=== PATIENT | female | born 1980 | race Hispanic/Latino ===

== ENCOUNTER 2016-03-12 17:16 | Emergency (ER) | payer OTHER ==
[~2016-03-12] VITALS: Ht 157.5 cm; Wt 79.5 kg
[~2016-03-12 17:16] MED LIST: PREN1TAB69 PO
[2016-03-12 17:29] VITALS: BP 120/75; PULSE 94; RESP 18; O2SAT 96
--- NOTE | 2016-03-12 18:48 | ED.REPORT ---
HPI-URI / Cough / Cold Date of Service Mar 12, 2016 ED Provider: Doc,Ed MD History of Present Illness: Mom sick since 03/04/2016, doing emergeneC, body aches on 03/09, fatigue, non stop coughing, green d/c, pressure in head. primary care freyafili nuñez. will need a note for work. Nursing Notes Stated Complaint: COUGH, DIZZY THROAT, MUCUS Chief Complaint: FLU/Cold Symptoms Nursing Notes Reviewed: Yes Allergies: Coded Allergies: sulfamethoxazole (Verified Allergy, Unknown, 08/24/10) trimethoprim (Verified Allergy, Unknown, 08/24/10) Scheduled Vit/Fe Fumarate/Fa-Expunged Drug, Do (-Expunged Drug, Do Not Renew!) 1 Each Tablet 1 EACH PO DAILY General Time Seen by MD: 18:47 Chief Complaint Cough, productive... 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 [employer] Ambulatory Status Independent Review of Systems Basic Review of Systems Cardiovascular: No chest pain, No dyspnea on exertion, No orthopnea, No parox noct dyspnea, No palpitations : No dysuria, No frequency Musculoskeletal: No extremity swelling, No extremity pain, Full range of motion , Joints NL Hematologic: No bleeding, No bruising Endocrine: No cold intolerance, No heat intolerance, No weight gain, No weight loss Psychiatric: Normal thought content Physical Exam Initial Vital Signs Vital Signs (First) Date Time Temp Pulse Resp B/P Pulse Ox O2 Delivery O2 Flow Rate FiO2 03/12/16 17:29 38.0 94 18 120/75 96 Room Air Initial VS: Reviewed, Vital signs abnormal Head / Eyes: Atraumatic, Normocephalic, PERRL Neck: Supple, Non-tender, Full range of motion Cardiovascular: Regular rate & rhythm, Heart sounds normal, Intact distal pulses Abdomen / GI: Soft, Non-tender, No guarding, No rebound, No distention Back: No CVA tenderness Lymphatic: No lymphadenopathy Extremities: Vascular intact, Neuro intact, No swelling, No tenderness Skin: Warm, Dry, No cyanosis Neurologic: Alert, Oriented, Nonfocal Psychiatric: Mood/affect normal, Behavior normal, Normal thought content General/Constitutional: Awake, Alert, No acute distress, Well appearing, Well developed, Well hydrated, Well nourished, Cooperative, Not toxic appearing ENT: Atraumatic, Airway patent, Mucous membranes moist, Pharynx NL Respiratory / Chest: Atraumatic, Breath sounds NL, Breath sounds = bilat, No respiratory distress Head / Eyes: Atraumatic, Normocephalic, PERRL, EOMI Cardiovascular: Heart rate NL, Regular rhythm, Heart sounds NL, No gallop Interpretation & Diagnostics Lab Results Interpretation Lab Results Interpretation: influenza is negative X-Ray Chest Interpretation Chest Xray Interpretation: OCEDURE: X-RAY CHEST, TWO VIEWS ([id number]) INDICATIONS: cough fever TECHNIQUE: 2 views of the chest were acquired. COMPARISON: [facility], , CHEST 2VW, 10/26/2013, 9:58. FINDINGS: Surgical changes and devices: None. Lungs and pleura: No pleural effusions or pneumothorax. Lungs are clear. Mediastinum: Mediastinal contours are normal. Heart size is normal. Bones and chest wall: No suspicious bony abnormalities. Soft tissues appear unremarkable. IMPRESSION: No acute process. Discharge & Departure Impression: Primary Impression: Upper respiratory infection URI type: unspecified URI Qualified Code: J06.9 - Acute upper respiratory infection, unspecified Additional Impression: Fever Fever type: unspecified Qualified Code: R50.9 - Fever, unspecified Disposition: Home Patient Instructions: Fever in Adults (ED), Upper Respiratory Infection (ED) Additional Instructions: The chest x-ray is negative for any sign of infection. The influenza is negative. With being sick for 10 days, it is prudent to do a trial of antibiotics. Start azithromycin daily for 5 days. Use tessalon perles 3 times a day to decrease cough. Use ibuprofen 800 mg 3 times a day for fever and body aches. Rest as much as possible. Push fluids. If you feel you are getting worse , return to the ER. Follow with primary care as needed. I am sorry you are not feeling well. Referrals: Freya Nuñez (PCP) EDSupervising Provider for APC: Joaquim Rodriguez DO copies to: Freya Nuñez Sue ARNP Mar 12, 2016 18:48
--- NOTE | 2016-03-12 19:25 | DRSVH ---
PROCEDURE: X-RAY CHEST, TWO VIEWS ([id number]) INDICATIONS: cough fever TECHNIQUE: 2 views of the chest were acquired. COMPARISON: [facility], , CHEST 2VW, 10/26/2013, 9:58. FINDINGS: Surgical changes and devices: None. Lungs and pleura: No pleural effusions or pneumothorax. Lungs are clear. Mediastinum: Mediastinal contours are normal. Heart size is normal. Bones and chest wall: No suspicious bony abnormalities. Soft tissues appear unremarkable. IMPRESSION: No acute process. Dictated by: Cuco Harper M.D. on 03/12/2016 at 19:23 Approved by: Cuco Harper M.D. on 03/12/2016 at 19:24
[2016-03-12 19:55] VITALS: BP 119/78; PULSE 90; RESP 18; O2SAT 99
== END 2016-03-12 19:56 | disposition home or self-care (01) ==
LOC: SED 17:16
DX: J06.9 Acute upper respiratory infection, unspecified (principal); Z87.891 Personal history of nicotine dependence; Z88.2 Allergy status to sulfonamides; Z88.1 Allergy status to other antibiotic agents